=== PATIENT | female | born 1965 | race Caucasian/White ===

== ENCOUNTER 2025-06-12 15:00 | Inpatient (IN) | payer MEDICAID, SELFPAY ==
[2025-06-12 15:01] VITALS: BMI 26.6
[2025-06-12 15:07] VITALS: BP 139/84; PULSE 107; RESP 20; TEMP 36.4; O2SAT 97
--- NOTE | 2025-06-12 15:09 | XR_ITS ---
Examination: Pelvic ultrasound, transabdominal, complete Technique: Transabdominal ultrasound of the pelvis performed using grayscale imaging Date and time of exam: June 12, 2025, 1534 hours INDICATIONS: Worsening pelvic pain beginning 6 months ago FINDINGS: Absent uterus Right ovary and left ovary obscured by bowel gas IMPRESSION: Limited study, ovaries obscured by bowel gas No solid pelvic mass No free fluid in the pelvis
--- NOTE | 2025-06-12 15:09 | XR_ITS ---
Examination: CT abdomen with intravenous contrast CT pelvis with intravenous contrast 2-D coronal reconstructions 2-D sagittal reconstructions Date and time of exam: June 12, 2025, 1727 hours INDICATIONS: Onset lower abdominal pain today. CTDI: vol (mGy) 8.67 DLP: (mGycm) 452 Technique: Multiple axial sections of the abdomen and pelvis have been obtained. 64 slice high-resolution scanner used. 3 mm axial sections have been obtained, post intravenous injection 60 cc [id number] 2-D sagittal, coronal reconstructions obtained. Low dose protocols were performed. One or more of the following dose reduction techniques were used; automated exposure control, adjustment of the mA and/or KV according to patient size, use of iterative reconstruction technique. Findings: Large retrocardiac gastric hernia No focal liver or splenic lesions No gallstones No pancreatic mass No renal or ureteral calculi, no hydronephrosis Inflamed appendix enlarged below the cecum, axial images 129 through 155 with appendicolith No pelvic abscess Scattered colonic diverticulosis Absent uterus Contracted urinary bladder Advanced degenerative disc disease L5-S1 IMPRESSION: Acute appendicitis, negative for pelvic abscess
[2025-06-12 15:28] LABS: Collection Type, Urine Clean Catch
[2025-06-12 15:30] LABS: Basophils # (Auto) 0.0 Thou/mm3 (0.0-0.2); Basophils % (Auto) 0 % (0-2.5); Eosinophils # (Auto) 0.0 Thou/mm3 (0.0-0.5); Eosinophils % (Auto) 0 % (0-10); Hematocrit 44.5 % (36.0-46.0); Hemoglobin 14.9 g/dL (12.0-16.0); Immature Granulocytes Auto 0.10 Thou/mm3 (0.00-0.00); Lymphocytes # (Auto) 1.5 Thou/mm3 (1.0-4.8); Lymphocytes % (Auto) 8 % (10-50); Mean Corpuscular HGB Conc 33.5 g/dl (31.0-37.0); Mean Corpuscular Hemoglobin 31.3 pg (25.0-35.0); Mean Corpuscular Volume 94 fL (80-100); Monocytes # (Auto) 1.0 Thou/mm3 (0.0-0.8); Monocytes % (Auto) 5 % (0-12); Neutrophils # (Auto) 15.8 Thou/mm3 (1.8-7.7); Neutrophils % (Auto) 86 % (37-80); Nucleated Red Blood Cell # 0.00 Thou/mm3 (0.00-0.00); Nucleated Red Blood Cell % 0 /100 WBC (0); Platelet Count 342 Thou/mm3 (140-440); RDW Standard Deviation 46.3 fL (36.4-46.3); Red Blood Count 4.76 Miln/mm3 (4.00-5.20); White Blood Count 18.4 Thou/mm3 (3.6-11.0)
--- NOTE | 2025-06-12 15:40 | EDRME_ITS ---
Rapid Medical Screening Exam PENDING SALE TO [facility] Arrival date/time: 06/12/25 15:00 59-year-old female presents to the emergency department today for complaints of right sided pelvic and abdominal pain Chief Complaint: Abdominal Pain Time Seen by Provider: 06/12/25 15:12 Vital signs: Vital Signs Temperature 97.5 F 06/12/25 15:07 Pulse Rate 107 H 06/12/25 15:07 Respiratory Rate 20 06/12/25 15:07 Blood Pressure 139/84 H 06/12/25 15:07 Pulse Oximetry (%) 97 06/12/25 15:07 Oxygen Delivery Method Room Air 06/12/25 15:07 Exam: On exam patient has tenderness right pelvic region and right side of the abdomen Clinical Impression: Lab work and imaging ordered medication ordered
[2025-06-12 15:50] LABS: Alanine Aminotransferase 18 U/L (10-49); Albumin, Serum 4.7 gm/dL (3.4-4.8); Albumin/Globulin Ratio 1.8 (1.2-2.2); Alkaline Phosphatase 104 U/L (46-116); Anion Gap 9 (7-16); Aspartate Amino Transferase 22 U/L (0-34); BUN/Creatinine Ratio 11 Ratio (12-20); Bilirubin,Total 1.8 mg/dL (0.3-1.2); Blood Urea Nitrogen 11 mg/dL (9-23); Calcium 9.4 mg/dL (8.3-10.6); Calcium (Corrected) 9.4 mg/dL (8.5-10.1); Carbon Dioxide 28.3 mMol/L (20.0-31.0); Chloride 103 mMol/L (98-107); Creatinine (Component) 1.0 mg/dL (0.6-1.3); Estimated Creatinine Clearance 59.7 mL/min (>60); Globulin 2.6 gm/dL (2.3-3.5); Glucose 124 mg/dL (74-106); Lipase 25 U/L (12-53); Osmolality,Calculated 279 (275-295); Potassium 3.9 mMol/L (3.4-5.1); Sodium 140 mMol/L (136-145); Total Protein 7.3 gm/dL (5.7-8.2); eGFR > 60 See Note
[2025-06-12] MEDS: KETOROLAC INJ 30 MG/ML VIAL IM (16:10)
[2025-06-12] MEDS: HYDROcodone/APAP 5/325 TABLET 1 TAB PO (16:10)
[2025-06-12 16:33] LABS: Bacteria,Urine Rare; Bilirubin,Urine Negative (Negative); Blood,Urine 1+ (Negative); Clarity,Urine Clear (Clear/Hazy); Color,Urine Yellow (Lt Yel-Yel); Culture Indicated,Urine Contaminated; Glucose, Urine Negative (Negative); Ketones,Urine Negative (Negative); Leukocyte Esterase,Urine Positive (Negative); Nitrite,Urine Negative (Negative); PH,Urine 5.5 (5.0-7.0); Protein,Urine Trace (Neg - Trace); RBC,Urine 8 /hpf (0-3); Specific Gravity,Urine 1.029 (1.001-1.035); Squamous Epithelial Cell,Urine 23 /hpf (0-5); Urobilinogen,Urine Negative mg/dL (0.0-1.0); WBC,Urine 49 /hpf (0-5)
--- NOTE | 2025-06-12 20:27 | PD.EDABDPN ---
ED Abdominal Pain RME/HPI General Chief Complaint: Abdominal Pain Stated complaint: RLQ ABD PAIN X2 DAYS Time seen by provider: 06/12/25 15:12 Arrival date/time: 06/12/25 15:00 RME / HPI RME / HPI narrative: 06/12/25 15:00 59-year-old female presents to the emergency department today for complaints of right sided pelvic and abdominal pain Exam: On exam patient has tenderness right pelvic region and right side of the abdomen Impression: Lab work and imaging ordered medication ordered Related Data Previous Rx's ?Medication ?Instructions ?Recorded Hydrocodone/Acetaminophen * (NORCO 1 tab PO Q6H PRN PAIN #14 tabs 08/25/16 5/325 *) ibuprofen 600 mg tablet 1 tab PO Q8HR PRN PAIN #30 tabs 05/21/17 Allergies Allergy/AdvReac Type Severity Reaction Status Date / Time NKA* Allergy Uncoded 06/12/25 15:05 Review of Systems Review of Systems Systems Reviewed: All systems reviewed, normal except as documented Constitutional Constitutional: Reports system reviewed and no additional complaints, except as documented Cardiovascular Cardiovascular: Reports system reviewed and no additional complaints, except as documented Gastrointestinal Gastrointestinal: Reports system reviewed and no additional complaints, except as documented and Reports abdominal pain Genitourinary Genitourinary: Reports system reviewed and no additional complaints, except as documented Musculoskeletal Musculoskeletal: Reports system reviewed and no additional complaints, except as documented ED Exam General General appearance: Present alert and in no apparent distress Head Head exam: Present atraumatic and normocephalic ENT ENT exam: Present normal exam and normal oropharynx Neck Neck exam: Present normal inspection Cardiovascular Cardiovascular exam: Present regular rate and normal rhythm Abdominal Exam Abdominal exam: Present soft, tenderness, Gutierrez's sign and tenderness at McBurney's Point; Absent distention Extremities Exam Extremities exam: Present normal inspection and full ROM Neurological Exam Neurological exam: Present alert and oriented X3 Course Quality Measures VTE prophylaxis Orders Category Date Time Status Place in Observation Status Routine Admission 06/12/25 20:29 Active Activity as Tolerated Routine Care 06/12/25 20:[address] Screening NOW Care 06/12/25 15:10 Active Insert IV NOW Care 06/12/25 15:[address] abdomen pelvis w con Stat Exams 06/12/25 15:09 Completed US pelvic complete Stat Exams 06/12/25 15:09 Completed CBC Stat Lab 06/12/25 15:18 Completed Comprehensive Metabolic Panel Stat Lab 06/12/25 15:18 Completed Lipase Stat Lab 06/12/25 15:18 Completed UA, C/S IF [Urinalysis, C/S if Indicated] Stat Lab 06/12/25 15:18 Completed HYDROcodone*/APAP 5/325 [[place] 5/325] Med 06/12/25 15:39 Discontinued 1 tab PO X1 ONE Ketorolac Inj [Toradol Inj] Med 06/12/25 15:40 Discontinued 30 mg IM X1 ONE Vital Signs Vital signs: Vital Signs Temperature 97.5 F 06/12/25 15:07 Pulse Rate 107 H 06/12/25 15:07 Respiratory Rate 20 06/12/25 15:07 Blood Pressure 139/84 H 06/12/25 15:07 Pulse Oximetry (%) 97 06/12/25 15:07 Oxygen Delivery Method Room Air 06/12/25 15:07 Abdominal Pain MDM MDM Narrative MDM Narrative:: 59-year-old patient presents emergency department complaint of right lower quadrant pain for the past 2 days that worsened over the last 24 hours she denies fever she denies nausea she denies vomiting. Pain is worse with palpation of the right lower quadrant. She denies any significant past surgical history. Patient data External records reviewed:: None Clinical information provided by:: patient Social determinants that could affect healthcare access:: none Patient has the following chronic illnesses:: na How is presenting disease/condition affected by chronic disease/condition?: no chronic disease Evaluation data The following diagnostics were reviewed and interpreted by me:: lab results and radiology exam(s) Lab and/or radiology exams considered but not ordered:: Lab and radiology exams considered and ordered Interpretation Summary: Appendicitis Medications / Prescriptions Medications or Prescriptions considered but not ordered:: Meds considered and ordered Medication administrations:: Medication Administration History Acetaminophen (Acetaminophen 325 Mg Tablet) 650 mg PO Q6H PRN PRN Reason: PAIN SCALE 1-3 (mild Stop: 07/12/25 20:28 Last Admin: 06/12/25 21:03 Dose: 650 mg Documented By: CLAIRE Sodium Chloride (Ns) 1,000 mls @ 125 mls/hr IV .Q8H MYESHA Stop: 07/12/25 20:29 Last Admin: 06/12/25 21:00 Dose: 125 mls/hr Documented By: CLAIRE Piperacillin/Tazobactam/Dextrose (Zosyn) 3.375 gm in 50 mls @ 12.5 mls/hr IV Q8HR MYESHA; Protocol Stop: 06/20/25 05:59 Ketorolac Tromethamine (Ketorolac Inj 30 Mg/Ml Vial) 15 mg IVP Q6H PRN PRN Reason: PAIN SCALE 4-6 (Moderate Stop: 06/17/25 20:28 Last Admin: 06/12/25 21:00 Dose: 15 mg Documented By: CLAIRE Morphine Sulfate (Morphine Sulf Inj 4 Mg/Ml Vial) 4 mg IVP Q4HR PRN PRN Reason: PAIN SCALE 7-10 (Severe Stop: 06/17/25 20:28 Last Admin: 06/12/25 21:02 Dose: 4 mg Documented By: CLAIRE Discontinued Medications Hydrocodone Bitart/Acetaminophen (Hydrocodone/Apap 5/325 Tablet) 1 tab PO X1 ONE Stop: 06/12/25 15:40 Last Admin: 06/12/25 16:10 Dose: 1 tab Documented By: Piperacillin/Tazobactam/Dextrose (Zosyn) 3.375 gm in 50 mls @ 100 mls/hr IV X1 ONE; Protocol Stop: 06/12/25 21:14 Last Admin: 06/12/25 21:00 Dose: 100 mls/hr Documented By: CLAIRE Ketorolac Tromethamine (Ketorolac Inj 30 Mg/Ml Vial) 30 mg IM X1 ONE Stop: 06/12/25 15:41 Last Admin: 06/12/25 16:10 Dose: 30 mg Documented By: Ondansetron HCl (Ondansetron Inj 2 Mg/Ml Inj 2 Ml) 4 mg IVP X1 ONE; Protocol Stop: 06/12/25 20:34 Last Admin: 06/12/25 21:02 Dose: 4 mg Documented By: CLAIRE per above Consultations Consultation(s) initiated? (list below): Yes Consultation #1 (Physician, Specialty, Details): MICHELL Surgery, Accepts for surgery Consultation #2 (Physician, Specialty, Details): 825pm called made to surgeon who accepts patient for surgery Diagnosis Differential diagnosis abdominal pain: abdominal pain, acute appendicitis, calculus of kidney, constipation and diverticulitis Most likely diagnosis given after review of the tests above:: appendicitis Admission Indicated Admission indicated?: indicated Explain why admission is indicated or not indicated:: surgical procedure neede Admission Request Was there a request for admission?: Yes Admission Attestation Admission request attestation: Discussed case with [] from Hospitalist service regarding admission. Discussed patients ED course, exam findings, labs, and radiology results. The Hospitalist [agrees,declines] to accept the patient for admission. Disposition Plan Disposition Plan: Admit Discharge Plan Plan Patient Disposition: Admit Acute Care w/in Hospital Patient condition on transfer: Stable Problem List Clinical Impression: Acute appendicitis
[2025-06-12] MEDS: KETOROLAC INJ 30 MG/ML VIAL 15 MG IVP (21:00)
[2025-06-12] MEDS: PIPER/TAZO 3.375 GM PREMIX 3.375 GM/50 ML BAG IV (21:00)
[2025-06-12] MEDS: SODIUM CHLORIDE 0.9% 1000 ML 1,000 ML 125 ML IV (21:00)
[2025-06-12] MEDS: MORPHINE SULF INJ 4 MG/ML VIAL IVP (21:02)
[2025-06-12] MEDS: ONDANSETRON INJ 2 MG/ML INJ 2 ML 4 MG IVP (21:02)
[2025-06-12] MEDS: ACETAMINOPHEN 325 MG TABLET 650 MG PO (21:03)
[2025-06-12 21:24] VITALS: BP 105/71; PULSE 90; RESP 20; TEMP 36.7; O2SAT 96
[2025-06-13] VITALS (13 sets, daily range): BP systolic 96–137; BP diastolic 65–85; PULSE 76–97; RESP 13–20; TEMP 36.1–36.4; O2SAT 91–100; BMI 27.8
--- NOTE | 2025-06-13 01:05 | PD.SURHP ---
HPI Date of Admission 06/12/25 20:29 HPI 59F with GERD, chronic abdominal pain presenting with right lower quadrant pain and nausea. Patient reports she has been feeling his pain on and off for months, but it became worse in the last 2 days, most prominent in the right lower quadrant but she did also have bandlike pain across the mid abdomen. Associated with nausea and anorexia, she is not eating in the last couple of days. Workup is consistent with acute appendicitis with appendicolith Patient has not yet had a colonoscopy PMH: GERD, chronic abdominal pain PSH: Laparoscopic partial hysterectomy for malignancy Meds: Ibuprofen 800 mg every 4 hours for abdominal pain, Prilosec Allergies: NKDA Social history: Smokes 5 to 10 cigarettes a day for 30 years Family history: No known colon or rectal cancer Review of Systems Review of Systems ROS Unobtainable: All systems reviewed & no additional complaints except as documented Meds Home Medications and Allergies Home Medications ?Medication ?Instructions ?Recorded ?Confirmed ?Type Gas-X 2 tab PO BID PRN acid reflux 06/13/25 06/13/25 History Pepto-Bismol 30 ml PO .Qdaily 06/13/25 06/13/25 History ibuprofen 200 mg tablet 800 mg PO Q4H PRN pain 06/13/25 06/13/25 History omeprazole 1 tab PO .qdaily 06/13/25 06/13/25 History Allergies Allergy/AdvReac Type Severity Reaction Status Date / Time NKA* Allergy Uncoded 06/12/25 15:05 Exam Vital Signs Temp Pulse Resp BP Pulse Ox O2 Del Method 98.0 F 90 20 105/71 96 Room Air 06/12/25 21:24 06/12/25 21:24 06/12/25 21:24 06/12/25 21:24 06/12/25 21:24 06/12/25 21:24 Constitutional Constitutional: no acute distress Routine Respiratory Exam Respiratory: Present no resp distress Routine Abdominal Exam Abdominal: Present soft, tenderness (significant RLQ tenderness) and guarding; Absent distended or rebound Results Results: Laboratory Laboratory results: results reviewed Results: Imaging CT scan - abdomen: report reviewed and image reviewed Assessment & Plan Plan 59F with GERD, history of laparoscopic hysterectomy presenting with signs and symptoms of acute appendicitis with appendicolith. I explained that in the setting of appendicolith, surgery is recommended to prevent recurrence of appendicitis and enumerated risks including need for conversion to open, bleeding, secondary infection, and injury to nearby structures. I also informed patient that in some cases the appendix is too walled off for safe removal, in which case I may just washout and place a drain. All questions were answered and pt is agreeable to proceeding Quality Measures Quality Measures VTE prophylaxis
[2025-06-13] MEDS: SODIUM CHLORIDE 0.9% 1000 ML 1,000 ML 125 ML IV (01:14)
[2025-06-13] MEDS: CALCIUM CARBONATE 600 MG TABLET PO (01:14)
[2025-06-13] MEDS: MORPHINE SULF INJ 4 MG/ML VIAL IVP ×4 (01:14→23:30)
--- NOTE | 2025-06-13 02:47 | PC.NURSE ---
seen and examined by Dr. Dupree. Pt called sister Homa and sister listened to plan of care over the phone while the phone was on speaker.
--- NOTE | 2025-06-13 03:09 | PC.NURSE ---
pt to Rhona cabrera.
--- NOTE | 2025-06-13 04:10 | ESOP_ITS ---
Date of Procedure 06/13/25 Pre Op Diagnosis Acute appendicitis Post Op Diagnosis Gangrenous appendicitis Procedure Laparoscopic appendectomy Findings Gangrenous appendix Procedure Description After discussion of risks and benefits, patient was brought to the operating room, SCDs were placed and general anesthesia was induced. Pt preferred not to urinate before entering the operating room so Veras catheter was placed. She received preoperative antibiotics and was prepped and draped in the usual sterile fashion. After timeout an infraumbilical incision was made with a #15 blade and the skin was elevated with towel clamps. A Veress needle was placed through the incision and proper positioning was confirmed with a drop test. The abdomen was insufflated to 15 mmHg at which point the Veress was exchanged for a 5 mm camera using the Visiport technique. There were no signs of injury from the point of entry. 2 additional ports were placed under direct vision, one 5 mm in the suprapubic region and one 5 mm in the left lower quadrant. The infraumbilical port was upsized to a 12 mm also under direct vision. Patient was placed in Trendelenburg with left side down. The appendix was easily identified by tracing the taeinea of the colon. It was adherent to the lateral abdominal wall and noted to be gangrenous and friable. A window was made between the base of the appendix and the mesoappendix using blunt dissection, and the base of the appendix was stapled using a 45 mm blue load stapler. The mesoappendix was transected with a harmonic scalpel. The area was gently irrigated and there were no signs of bleeding. The pelvis was also gently irrigated and there were no signs of pus or bleeding. The specimen was removed in an Endo Catch bag via the infraumbilical port and the infraumbilical fascia was closed with 0 Vicryl suture using a Leonard-Alejandro. Counts were confirmed correct. Pneumoperitoneum was released and ports were removed under direct vision. Incisions were irrigated and infiltrated with half percent Marcaine for total of 30 cc. Incisions were closed with 4-0 Monocryl and reinforced with Dermabond. The Veras catheter was removed. Patient was extubated and brought to PACU in stable condition Pathology / specimen Other (Appendix) Estimated Blood Loss 25 Surgeon Tricia Dupree MD Surgical Staff Operation Date: 06/13/25 02:30 Case Staff Anesthesiologist: Raghavendra Wheeler RNsolar project coordination specialist: Pinky Zuniga
--- NOTE | 2025-06-13 04:15 | SUR.PHASEI ---
0415 Patient arrived to recovery resting comfortably [facility], drowsy and able to respond to verbal prompting, on oxygen 4L via nasal cannula, breathing unlabored, vital signs stable, denies pain, dressing intact to abdomen; dermabond, no bleeding noted, denies nausea, report received from Araceli DELGADO and Dr. Wheeler
--- NOTE | 2025-06-13 04:51 | SUR.PHASEI ---
0447 Report given to Isabel DELGADO, patient meets discharge criteria from recovery, awake and talking with staff, breathing unlabored, vital signs stable, denies pain at rest; states, It's just sore , eating ice chips; denies nausea, dressing intact; no bleeding noted. 0451 Patient transported via gurney to room 366 without incident, patient able to ambulate from gurney to bed with stand-by assist from this engineering writer, Isabel DELGADO promptly arrived in patients room, patient resting comfortably in her bed when this engineering writer left patient room
[2025-06-13] MEDS: PIPER/TAZO 3.375 GM PREMIX 3.375 GM/50 ML BAG IV ×3 (05:23→20:59)
[2025-06-13] MEDS: PANTOPRAZOLE 40 MG TABLET PO (08:25)
[2025-06-13] MEDS: BISMUTH SUBSALICYL 1 ML 30 ML PO (08:26)
[2025-06-13] MEDS: ONDANSETRON INJ 2 MG/ML INJ 2 ML 4 MG IVP (09:02)
--- NOTE | 2025-06-13 11:59 | PC.SS ---
Alona Robertson is a 59-year-old female admitted to Med Surg for Acute Appendicitis. SS conducted bedside contact with the patient to complete initial assessment and to discuss discharge planning. Role and reason explained. Patient confirmed demographic information. Patient identifies father Simba Izquierdo [phone] as her surrogate decision maker. Pt states she is able to complete all ADL?s independently. No need for any source of DME. Pts PCP is Dr. Armstrong (over 1 year since seen PCP). Pharmacy of choice [facility]. Discharge options discussed and the pt wishes to return home.? Family will provide transportation upon DC. No further intervention required at this time, social contact worker would be available to address any further concerns. DC Plan: Home Contact: Father Simba Address: Confirmed on face sheet PCP: Patti
[2025-06-13] MEDS: KETOROLAC INJ 30 MG/ML VIAL 15 MG IVP ×2 (13:33→20:57)
[2025-06-14] VITALS (7 sets, daily range): BP systolic 96–143; BP diastolic 66–91; PULSE 67–85; RESP 16–94; TEMP 36.3–37.1; O2SAT 94–98; BMI 27.8
[2025-06-14] MEDS: PIPER/TAZO 3.375 GM PREMIX 3.375 GM/50 ML BAG IV ×2 (05:02→13:51)
[2025-06-14] MEDS: KETOROLAC INJ 30 MG/ML VIAL 15 MG IVP (05:09)
[2025-06-14] MEDS: PANTOPRAZOLE 40 MG TABLET PO (08:14)
[2025-06-14] MEDS: IBUPROFEN TAB 400 MG TABLET 800 MG PO (08:15)
[2025-06-14] MEDS: BISMUTH SUBSALICYL 1 ML 30 ML PO (09:17)
--- NOTE | 2025-06-14 09:37 | PC.SS ---
Follow up note: Gallbladder removal today. Pt is on IV antibiotic. Pt will return home upon dc.
--- NOTE | 2025-06-14 11:16 | PD.SURDS ---
Planned Discharge Date 06/14/25 DS: Providers Provider Date of admission: 06/13/25 04:18 Primary care physician: Ellen Armstrong MD Admitting Provider: Tricia Dupree MD Attending Provider on Admission: Tricia Dupree MD Consults: 06/13/25 00:38 Consult Diabetic Routine Comment: Referral Registered Dietitian Routine Comment: 06/13/25 22:05 Referral [place] Routine Comment: Attending Provider on DC: Tricia Dupree MD Discharging Provider: Tricia Dupree MD Diagnosis Discharge Diagnosis (1) Acute appendicitis: Status: Acute Problem List Completed Was Problem List Reviewed/Reconciled?: Yes Exam Vital Signs Temp Pulse Resp BP Pulse Ox O2 Del Method O2 Flow Rate 98.3 F 75 18 110/84 98 Room Air 2 06/14/25 08:00 06/14/25 09:40 06/14/25 09:40 06/14/25 08:00 06/14/25 08:00 06/14/25 08:00 06/13/25 04:30 Discharge Plan Plan Patient Disposition: HOME (Self Care) Patient condition on transfer: Stable Prescriptions/Referrals Prescriptions/Med Rec: New oxycodone-acetaminophen [Percocet] 5-325 mg tablet 1 tab PO Q4H MDD 6 tabs PRN (Reason: pain) Qty: 20 0RF Rx Instructions: Take 1 tablet as needed every 4-6 hours for moderate to severe pain ibuprofen 800 mg tablet 800 mg PO Q6H Qty: 30 0RF Rx Instructions: Take 1 tablet as needed every 6 hours for mild to moderate pain amoxicillin-pot clavulanate 875-125 mg tablet 1 tab PO BID Qty: 10 0RF Rx Instructions: Take 1 tablet twice a day until complete No Action Hydrocodone/Acetaminophen * (NORCO 5/325 *) 1 TAB tablet 1 tab PO Q6H PRN (Reason: PAIN) Qty: 14 0RF ibuprofen 600 MG tablet 1 tab PO Q8HR PRN (Reason: PAIN) Qty: 30 0RF ibuprofen 200 mg tablet 800 mg PO Q4H PRN (Reason: pain) Rx Instructions: recently frequency increased to q4hrs prn over the counter. Pepto-Bismol 30 ml PO .Qdaily Rx Instructions: over the counter baking soda and water wasn't working anymore, then started taking peptobismol, and peptobismol was woking. omeprazole 1 tab PO .qdaily Rx Instructions: I have a bad acid reflux over the counter. Gas-X 2 tab PO BID PRN (Reason: acid reflux) Rx Instructions: over the counter Referrals: Tricia Dupree MD [Physician, General Surgery] Referral Note: You will receive a message to confirm a follow-up appointment with me on 06/24/25 Ellen Armstrong MD [Primary Care Provider, Family Practice] Patient/Caregiver Discharge Instructions Other Discharge Activity Instructions:: Avoid lifting objects >10lbs for 6 weeks You may resume showering tomorrow, Sat 06/15 It is ok to get incisions wet at that time, pat dry after Avoid bathing or swimming for 2 weeks If you develop worsening pain, nausea/vomiting, fever or concerns about the incisions please seek care in ER For any non-urgent concern you may call the office during business hours at [phone] (M-F 8-12pm, 1-4pm) Education Materials: Appendectomy Laparoscopic Dc, Preventing Surgical Site Infections Print Language: Dominican Stand Alone Forms: [facility] Info., Patient Portal Info Letter Discharge Order Discharge Orders: Discharge (Routine); Ordered 06/14/25 Ordered By: Tricia Dupree Results Results: Laboratory Laboratory results: results reviewed Results: Imaging CT scan - abdomen: report reviewed and image reviewed PROCEDURES: Procedure Date 06/13/25 Procedures Laparoscopic appendectomy (1) Acute appendicitis Qualifiers: Acute appendicitis type: with localized peritonitis Appendicitis gangrene presence: with gangrene Appendicitis perforation presence: without perforation Appendicitis abscess presence: without abscess Qualified Code(s): K35.31 - Acute appendicitis with localized peritonitis and gangrene, without perforation
--- NOTE | 2025-06-14 11:26 | PD.RESPRO ---
Documentation for date of: 06/14/25 Subjective Subjective Interval history: Patient is doing well day 1 s/p laproscopic appendectomy for gangrenous appendicitis. She is doing much better overall and only is exhibiting appropriate tenderness along the lower abdominal region with active movement. She denies NVD, fevers, malaise, or wound drainage. She is passing flatus and has an increasing appetite but has not had a bowel movement since the procedure. Her only concern was managing her pain at home. Exam Vital Signs Temp Pulse Resp BP Pulse Ox O2 Del Method O2 Flow Rate 98.3 F 75 18 110/84 98 Room Air 2 06/14/25 08:00 06/14/25 09:40 06/14/25 09:40 06/14/25 08:00 06/14/25 08:00 06/14/25 08:00 06/13/25 04:30 Constitutional Constitutional: no acute distress Routine Respiratory Exam Respiratory: Absent no resp distress Routine Abdominal Exam Abdominal: Present soft and surgical scars (c/d/i); Absent distended, guarding or rigid Objective Labs 06/12/25 15:18 06/12/25 15:18 Quality Measures Quality Measures VTE prophylaxis Assessment & Plan Assessment Current Active Medications: Generic Name Dose Route Start Last Admin Trade Name Freq PRN Reason Stop Dose Admin Acetaminophen 650 mg 06/12/25 20:29 06/12/25 21:03 Acetaminophen 325 Mg Tablet PO 07/12/25 20:28 650 mg Q6H PRN Administration PAIN SCALE 1-3 (mild Hydrocodone Bitart/Acetaminophen 1 tab 06/14/25 06:07 Hydrocodone/Apap 5/325 Tablet PO 06/19/25 06:06 Q4HR PRN PAIN SCALE 4-10(Mod-Sev Bismuth Subsalicylate 30 ml 06/13/25 09:00 06/14/25 09:17 Bismuth Subsalicyl 1 Ml PO 07/13/25 08:59 30 ml QDAY MYESHA Administration Calcium Carbonate 600 mg 06/13/25 01:02 06/13/25 01:14 Calcium Carbonate 600 Mg Tablet PO 07/13/25 01:59 600 mg Q4HR PRN Administration REFLUX Docusate Sodium 100 mg 06/14/25 11:16 Docusate Sod 100 Mg Capsule PO 07/14/25 11:15 QDAY PRN CONSTIPATION Protocol Piperacillin/Tazobactam/Dextrose 3.375 gm in 50 mls @ 12.5 mls/hr 06/13/25 06:00 06/14/25 05:02 Zosyn IV 06/20/25 05:59 12.5 mls/hr Q8HR MYESHA Administration Protocol Ibuprofen 800 mg 06/14/25 06:08 06/14/25 08:15 Ibuprofen Tab 400 Mg Tablet PO 07/14/25 06:07 800 mg Q6HR PRN Administration PAIN OR FEVER > 101 Ondansetron HCl 4 mg 06/14/25 06:07 Ondansetron Odt 4 Mg Tabrap PO 07/14/25 06:06 Q6HR PRN NAUSEA OR VOMITING Protocol Pantoprazole Sodium 40 mg 06/13/25 09:00 06/14/25 08:14 Pantoprazole 40 Mg Tablet PO 07/13/25 08:59 40 mg QDAY MYESHA Administration Simethicone 160 mg 06/13/25 06:12 Simethicone 80 Mg Chew PO 07/13/25 06:11 BID PRN GAS Additional Assessment: 59F day 1 s/p laproscopic appendectiomy for gangrenous appendicitis. Since she is feeling well, not exhibiting any acute signs of infection, denies NVD, her pain is managed well with medication, and she is comfortable with her assistance at home with recovery I am comfortable discharging her home with pain medication and antibiotics and scheduling an outpatient appointment to follow-up in 2 weeks to assess her recovery. Plan Discharge home with assawoman for pain management and antibiotics. Will follow-up in 2 weeks in outpatient clinic to assess recovery.
[2025-06-14] MEDS: DOCUSATE SOD 100 MG CAPSULE PO (11:49)
[2025-06-14] MEDS: HYDROcodone/APAP 5/325 TABLET 1 TAB PO (11:49)
== END 2025-06-14 16:52 | disposition home or self-care (01) | DRG 234 ==
LOC: SERX 20:33 → SERHOLD 20:54 → S3NX 06-13 00:01
PROVIDERS: Nurse Practitioner Primary Care; Admitting Provider Surgery; Emergency Provider Emergency Medicine; PCP Family Medicine; Visit Provider Surgery
PROC: 0DTJ4ZZ Resection of Appendix, Percutaneous Endoscopic Approach (ICD-10-PCS; CPT 44970; principal; 2025-06-13 02:15)
DX: K35.891 Other acute appendicitis without perforation, with gangrene (principal); G89.29 Other chronic pain; K21.9 Gastro-esophageal reflux disease without esophagitis; F17.210 Nicotine dependence, cigarettes, uncomplicated; Z79.899 Other long term (current) drug therapy
CPT/HCPCS: 36415; 74177; 76856; 80053; 81001; 83690; 85025; 96361; 96365; 96366; 96375; 99284; A4217; A4649; G0378; J0694; J1885; J2270; J2405; J2470; J2543; J2704; J3010; J3490; J7030; Q9967; A9270

== ENCOUNTER 2025-06-24 10:27 | Outpatient (AMB) | payer MEDICAID, SELFPAY ==
[2025-06-24 10:34] VITALS: BP 131/83; PULSE 80; RESP 18; TEMP 36.3; O2SAT 97; BMI 27.3
--- NOTE | 2025-06-24 10:34 | PD.GSCLVISIT ---
[facility] - [facility] 06/24/25 10:34 Height 1.65 m Height Method Measured Weight 74.616 kg Weight Measurement Method Standing Scale BMI 27.3 BP 131/83 H Blood Pressure Source Automatic Cuff Blood Pressure Location Left Upper Arm Position Sitting Respiration 18 Pulse 80 Pulse Source Monitor Temp 97.4 F Temp Source Temporal Artery Scan Pulse Oximetry (%) 97 Oxygen Delivery Method Room Air Med/Allergies Allergies & Medications Allergies NKA* Allergy (Uncoded 06/24/25 10:35) Medication Reconciliation Hydrocodone/Acetaminophen * (NORCO 5/325 *) 1 tab PO Q6H PRN PAIN #14 tabs 08/25/16 [Rx Confirmed 06/24/25] ibuprofen 600 mg tablet 1 tab PO Q8HR PRN PAIN #30 tabs 05/21/17 [Rx Confirmed 06/24/25] Gas-X 2 tab PO BID PRN acid reflux 06/13/25 [History Confirmed 06/24/25] Pepto-Bismol 30 ml PO .Qdaily 06/13/25 [History Confirmed 06/24/25] ibuprofen 200 mg tablet 800 mg PO Q4H PRN pain 06/13/25 [History Confirmed 06/24/25] omeprazole 1 tab PO .qdaily 06/13/25 [History Confirmed 06/24/25] amoxicillin 875 mg-potassium clavulanate 125 mg tablet 1 tab PO BID Gangrenous appendicitis #10 tabs 06/14/25 [Rx Confirmed 06/24/25] ibuprofen 800 mg tablet 800 mg PO Q6H #30 tabs 06/14/25 [Rx Confirmed 06/24/25] oxycodone-acetaminophen 5 mg-325 mg tablet (Percocet) 1 tab PO Q4H PRN pain #20 tabs 06/14/25 [Rx Confirmed 06/24/25] oxycodone-acetaminophen 5 mg-325 mg tablet (Percocet) 1 tab PO Q4H PRN pain #30 tabs 06/20/25 [Rx Confirmed 06/24/25] MA Intake Visit Data Collection New Patient or Established: Established Patient (seen at [facility] within 3 years) Seen by Clinical Staff ONLY (RN/MA): No Reason for Visit:: 2 WEEK POST OP APPENDECTOMY Pain Present Currently: No Pain scale:: 0 Pain Scale Used: Love-Gonsales/Numerical Cigar Packer And Grader Required: No PCP or OBGYN visit in last 3 months: Yes Hx Now: No Do You Feel Safe at Home: Yes Authorities Contacted: N/A Smoking Status Smoking Status: Light (< 1 pack/day) Cessation Counseling Provided: ALONA was advised that quitting smoking is the single most important factor to protect the health of themselves and their family. Discussed the benefits of quitting smoking with patient. Encouraged patient to quit smoking and provided Cessation assistance materials and resources. Tobacco Use: Cigarette Years smoked: 20 Are you interested in quitting?: No Would you like additional Smoking Cessation Counseling?: No Immunization / Flu Flu Vaccine in the Last 12 Months: No Flu Vaccine Exclusion Criteria: Refused by Patient Past Medical History Past Medical History NEUROLOGIC: Negative Seizures CARDIAC: Negative Cardiac Disorders or Congestive Heart Failure RESPIRATORY: Negative Chronic Obstructive Pulmonary Disease (COPD) or Asthma GASTROINTESTINAL: Positive Gastrointestinal Disorders (EGD=ulcers- I don't remember when it was done.), Ulcer (bleeding - ) and Gastroesophageal Reflux Disease (bad acid reflux) GENITOURINARY: Negative Renal Disease ENDOCRINE: Negative Diabetes Mellitus Type 1 or Diabetes Mellitus Type 2 HEMATOLOGIC: Negative Sickle Cell Disease OTHER HISTORY: Positive Anesthesia Reactions ( I go under pretty quick but last to wake up,I need lesser dose than usual ) and Cancer (uterus- fibroid tumor); Negative Falls (but gets dizzy), Chemotherapy or Radiation Therapy Surgical History SURGICAL: Positive Hysterectomy (ovaries still in place.) Social History SMOKING STATUS: Smoking status: Light (< 1 pack/day) SECOND HAND EXPOSURE: second hand exposure: No (5-10cig/day x 15yrs yrs) ALCOHOL: Alcohol Intake: Current ALCOHOL FREQUENCY: Alcohol Intake Frequency: A Few Times a Week HOUSING: Housing: House LIVES WITH: Lives With: Family HPI HPI Narrative Alona Robertson is a 59 yo female with a PMH of PCOS and undiagnosed diabetes presenting the clinic for a 2 week follow-up for a laparoscopic appendectomy. She is doing well overall, with only pain management as her only concern. She has appropriate RLQ tenderness that is improving mildly and is exacerbated by coughing, walking, or with bowel movements. She has been managing this well with ibuprofen and would like a refill. Additionally she admits to gastric reflux, associated with a gastric hernia confirmed with CT. She is having 2-3 BMs a day which she attributes to an increase in dietary intake, with appropriate flatus, mild nausea, but no vomiting, diarrhea, or constipation. She denies anorexia, fevers, chills, or unexpected weight changes since the last visit. ROS Review of Systems Systems Reviewed: All systems reviewed, normal except as documented Objective/Exam General Limitations: no limitations General Appearance: alert, in no apparent distress and cooperative Exp ENT Teeth exam: Present dental caries Resp Respiratory exam: Absent respiratory distress Abdominal Abdominal exam: Present soft, distention (states that she has been feeling bloated for a long period of time), tenderness, guarding and scar (c/d/i); Absent rebound or rigidity Abdominal tenderness: Present RLQ (appropriate) Assessment & Plan Diagnosis / Problem List (1) Acute gangrenous appendicitis: Status: Acute Assessment & Plan: 59F with PMH of PCOS and undiagnosed diabetes presents to the clinic for follow-up s/p laparoscopic appendectomy. She is only complaining of appropriate RLQ tenderness and is managing her pain well with ibuprofen. She endorses appropriate flatus, mild nausea, and denies vomiting, diarrhea, constipation, anorexia, fevers, chills, or unexpected weight changes. She is doing well overall and would like to address her gastric hernia after she has recovered. Plan: Ibuprofen refill and 4 week follow-up in outpatient clinic to Plan discuss colonoscopy Office Procedures GNS Level of Care Nursing/Assessment Patient Status: Established Patient Nursing Assessment/Reassesment: Medication Reconciliation, Update PMH in EMR and Vital Signs Coordination of Care: Complex Care and Chronic Disease 1-5, Education Complex Pt/Fam, Consent,records obtained, informed consent, Results/Orders obtained and Staff clarify orders Established Patient Charge Established Patient Point Assignment: 95 Established Patient Point Charge: EP Level 3 (80-115) Patient Portal Questionaires Social History Living Situation History Housing: House Housing Other:: lives with parents Tobacco History Smoking Status: Light (< 1 pack/day) Second Hand Smoke Exposure: No (5-10cig/day x 15yrs yrs) Alcohol History Alcohol Intake: Current Alcohol Intake Frequency: A Few Times a Week Alcohol Intake Frequency Other:: beer or tequila or fireball 3x/wk 2 shots x 30yrs on and off Substance Use History Substance Use: coccaine, meth Domestic Abuse History Do You Feel Safe at Home: Yes Review of Systems Report any current symptoms Only answer those that you have currently: Past Medical History Past Medical History Have you ever been diagnosed with any of the following: Neurological Problems Seizures: No Cardiology Problems Congestive Heart Failure: No Respiratory Problems Chronic Obstructive Pulmonary Disease (COPD): No Asthma: No Stomache/Intestinal Problems Ulcer: Yes (bleeding - ) Gastroesophageal Reflux Disease: Yes (bad acid reflux) Genital/Urinary Problems Renal Disease: No Endocrine Problems Diabetes Mellitus Type 1: No Diabetes Mellitus Type 2: No Blood Problems Sickle Cell Disease: No Other Problems Falls: No (but gets dizzy) Anesthesia Reactions: Yes ( I go under pretty quick but last to wake up,I need lesser dose than usual ) Chemotherapy: No Radiation Therapy: No Cancer: Yes (uterus- fibroid tumor) Surgical History Hysterectomy: Yes (ovaries still in place.)
== END 2025-06-24 11:19 | disposition home or self-care (01) ==
LOC: HODSRG 10:27
PROVIDERS: PCP Family Medicine; Referring Provider Family Medicine; Supervising Provider Surgery; Visit Provider Surgery
DX: Z09 Encounter for follow-up examination after completed treatment for conditions other than malignant neoplasm (principal)
CPT/HCPCS: 99213; G0463

== ENCOUNTER 2025-07-22 10:10 | Outpatient (AMB) | payer MEDICAID, SELFPAY ==
--- NOTE | 2025-07-22 10:24 | PD.GSCLVISIT ---
Vital Signs - [facility] 07/22/25 10:25 Height 1.65 m Height Method Measured Weight 76.317 kg Weight Measurement Method Standing Scale BMI 28.0 BP 137/91 H Blood Pressure Source Automatic Cuff Blood Pressure Location Left Upper Arm Position Sitting Respiration 19 Pulse 79 Pulse Source Monitor Temp 96.9 F Temp Source Temporal Artery Scan Pulse Oximetry (%) 98 Oxygen Delivery Method Room Air Med/Allergies Allergies & Medications Allergies NKA* Allergy (Uncoded 07/22/25 10:26) Medication Reconciliation Hydrocodone/Acetaminophen * (NORCO 5/325 *) 1 tab PO Q6H PRN PAIN #14 tabs 08/25/16 [Rx Confirmed 07/22/25] ibuprofen 600 mg tablet 1 tab PO Q8HR PRN PAIN #30 tabs 05/21/17 [Rx Confirmed 07/22/25] Gas-X 2 tab PO BID PRN acid reflux 06/13/25 [History Confirmed 07/22/25] Pepto-Bismol 30 ml PO .Qdaily 06/13/25 [History Confirmed 07/22/25] ibuprofen 200 mg tablet 800 mg PO Q4H PRN pain 06/13/25 [History Confirmed 07/22/25] omeprazole 1 tab PO .qdaily 06/13/25 [History Confirmed 07/22/25] amoxicillin 875 mg-potassium clavulanate 125 mg tablet 1 tab PO BID Gangrenous appendicitis #10 tabs 06/14/25 [Rx Confirmed 07/22/25] oxycodone-acetaminophen 5 mg-325 mg tablet (Percocet) 1 tab PO Q4H PRN pain #20 tabs 06/14/25 [Rx Confirmed 07/22/25] oxycodone-acetaminophen 5 mg-325 mg tablet (Percocet) 1 tab PO Q4H PRN pain #30 tabs 06/20/25 [Rx Confirmed 07/22/25] ibuprofen 800 mg tablet 800 mg PO Q6H #30 tabs 06/24/25 [Rx Confirmed 07/22/25] MA Intake Visit Data Collection New Patient or Established: Established Patient (seen at [facility] within 3 years) Seen by Clinical Staff ONLY (RN/MA): No Pain Present Currently: No Pain Scale Used: Love-Gonsales/Numerical Freezer Machine Operator Required: No PCP or OBGYN visit in last 3 months: Yes Hx Now: No Do You Feel Safe at Home: Yes Authorities Contacted: N/A Smoking Status Smoking Status: Light (< 1 pack/day) Cessation Counseling Provided: CLIFF was advised that quitting smoking is the single most important factor to protect the health of themselves and their family. Discussed the benefits of quitting smoking with patient. Encouraged patient to quit smoking and provided Cessation assistance materials and resources. Tobacco Use: Cigarette Years smoked: 10 Are you interested in quitting?: No Would you like additional Smoking Cessation Counseling?: Yes Immunization / Flu Flu Vaccine in the Last 12 Months: No Flu Vaccine Exclusion Criteria: Refused by Patient Past Medical History Past Medical History NEUROLOGIC: Negative Seizures CARDIAC: Negative Cardiac Disorders or Congestive Heart Failure RESPIRATORY: Negative Chronic Obstructive Pulmonary Disease (COPD) or Asthma GASTROINTESTINAL: Positive Gastrointestinal Disorders (EGD=ulcers- I don't remember when it was done.), Ulcer (bleeding - ) and Gastroesophageal Reflux Disease (bad acid reflux) GENITOURINARY: Negative Renal Disease ENDOCRINE: Negative Diabetes Mellitus Type 1 or Diabetes Mellitus Type 2 HEMATOLOGIC: Negative Sickle Cell Disease OTHER HISTORY: Positive Anesthesia Reactions ( I go under pretty quick but last to wake up,I need lesser dose than usual ) and Cancer (uterus- fibroid tumor); Negative Falls (but gets dizzy), Chemotherapy or Radiation Therapy Surgical History SURGICAL: Positive Hysterectomy (ovaries still in place.) Social History SMOKING STATUS: Smoking status: Light (< 1 pack/day) SECOND HAND EXPOSURE: second hand exposure: No (5-10cig/day x 15yrs yrs) ALCOHOL: Alcohol Intake: Current ALCOHOL FREQUENCY: Alcohol Intake Frequency: A Few Times a Week HOUSING: Housing: House LIVES WITH: Lives With: Family HPI HPI Narrative 59F with PCOS here for follow up of laparoscopic appendectomy completed 06/13/25. Pt reports feeling much better with only occasional pains which she manages with ibuprofen and tylenol. She is eating well and having regular bladder and bowel function, and has an upcoming appt with her PCP to discuss referral for repair of her gastric hernia ROS Review of Systems Systems Reviewed: All systems reviewed, normal except as documented Objective/Exam General General Appearance: alert, cooperative and well groomed Resp Respiratory exam: Absent respiratory distress Assessment & Plan Diagnosis / Problem List (1) Acute gangrenous appendicitis: Status: Acute Assessment & Plan: 59F with PCOS here for follow up of laparoscopic appendectomy completed 06/13/25, recovering well. I recommended colonoscopy as pt has not yet had one, however as pt is seeking surgery for her gastric hernia she may require EGD which could be performed at the same time as colonoscopy by a GI. I explained to pt that if she would prefer for me to perform her colonoscopy I would be happy to, and she states she will reach out as needed Office Procedures GNS Level of Care Nursing/Assessment Patient Status: Established Patient Nursing Assessment/Reassesment: Medication Reconciliation, Update PMH in EMR and Vital Signs Coordination of Care: Complex Care and Chronic Disease 1-5, Education Complex Pt/Fam, Consent,records obtained, informed consent, Results/Orders obtained and Staff clarify orders Established Patient Charge Established Patient Point Assignment: 95 Established Patient Point Charge: EP Level 3 (80-115) Patient Portal Questionaires Social History Living Situation History Housing: House Housing Other:: lives with parents Tobacco History Smoking Status: Light (< 1 pack/day) Second Hand Smoke Exposure: No (5-10cig/day x 15yrs yrs) Alcohol History Alcohol Intake: Current Alcohol Intake Frequency: A Few Times a Week Alcohol Intake Frequency Other:: beer or tequila or fireball 3x/wk 2 shots x 30yrs on and off Substance Use History Substance Use: coccaine, meth Domestic Abuse History Do You Feel Safe at Home: Yes Review of Systems Report any current symptoms Only answer those that you have currently: Past Medical History Past Medical History Have you ever been diagnosed with any of the following: Neurological Problems Seizures: No Cardiology Problems Congestive Heart Failure: No Respiratory Problems Chronic Obstructive Pulmonary Disease (COPD): No Asthma: No Stomache/Intestinal Problems Ulcer: Yes (bleeding - ) Gastroesophageal Reflux Disease: Yes (bad acid reflux) Genital/Urinary Problems Renal Disease: No Endocrine Problems Diabetes Mellitus Type 1: No Diabetes Mellitus Type 2: No Blood Problems Sickle Cell Disease: No Other Problems Falls: No (but gets dizzy) Anesthesia Reactions: Yes ( I go under pretty quick but last to wake up,I need lesser dose than usual ) Chemotherapy: No Radiation Therapy: No Cancer: Yes (uterus- fibroid tumor) Surgical History Hysterectomy: Yes (ovaries still in place.)
[2025-07-22 10:25] VITALS: BP 137/91; PULSE 79; RESP 19; TEMP 36.1; O2SAT 98; BMI 28.0
== END 2025-07-22 11:02 | disposition home or self-care (01) ==
PROVIDERS: PCP Family Medicine; Referring Provider Family Medicine; Supervising Provider Surgery; Visit Provider Surgery
DX: Z48.815 Encounter for surgical aftercare following surgery on the digestive system (principal); K44.9 Diaphragmatic hernia without obstruction or gangrene; F17.210 Nicotine dependence, cigarettes, uncomplicated
CPT/HCPCS: 99213; G0463